=== PATIENT | female | born 1965 | race Caucasian/White ===

== ENCOUNTER 2020-08-22 14:54 | Outpatient (REF) | payer OTHER, SELFPAY ==
[2020-08-22 16:00] LABS: MANUAL DIFF FLAG NO
[2020-08-22 16:12] LABS: Hematocrit 38.2 % (37-47); Hemoglobin 12.7 g/dl (12.0-16.0); Mean Corpuscular Hemoglobin 30.2 pg (27.0-33.0); Mean Corpuscular Volume 90.7 fL (80-98); Red Blood Count 4.21 X10*6/uL (4.20-5.50); White Blood Count 5.9 X10*3/uL (4.8-10.8)
[2020-08-22 16:13] LABS: Basophils Absolute Auto 0.1 X10*3/uL (0.0-0.2); Eosinophils Absolute Auto 0.3 X10*3/uL (0.0-0.4); Eosinophils Percent Auto 4.5 % (0-4); Imm Gran Abs Auto 0.03 X10*3/uL (0.00-0.03); Imm Gran Pct Auto 0.5 % (0.0-0.4); Lymphocytes Percent Auto 34.2 % (20-40); Mean Corpuscular HGB Conc 33.2 g/dl (31.0-35.0); Monocytes Absolute Auto 0.7 X10*3/uL (0.1-1.2); Monocytes Percent Auto 11.4 % (2-11); Neutrophils Absolute Auto 2.9 X10*3/uL (2.0-8.3); Neutrophils Percent Auto 48.4 % (45-73); Platelet Count 333 X10*3/uL (160-400); Red Cell Distribution Width 13.9 % (11.0-16.0)
[2020-08-22 16:16] LABS: Glucose Urine UA NEG (NEG); Leukocyte Esterase Urine NEG (NEG); Nitrite Urine NEG (NEG); Urine Blood 2+ (NEG); Urine Ketones NEG (NEG); Urine Protein NEG (NEG-TRACE)
[2020-08-22 16:20] LABS: Appearance Urine CLEAR; Color Urine YELLOW
[2020-08-22 16:28] LABS: Bacteria Urine TRACE /LPF; Squamous Epithelial Cell Urine 1+ /LPF; WBC Urine 0 /HPF (0-4)
[2020-08-22 16:29] LABS: Renal w Reflex-LAB USE ONLY Order Verified
[2020-08-22 16:34] LABS: Alanine Aminotransferase 24 U/L (0-31); Albumin Level 4.3 g/dL (3.5-5.0); Alkaline Phosphatase 101 U/L (39-117); Anion Gap 13 (12-20); Aspartate Amino Transferase 24 U/L (5-31); Bilirubin Total 0.3 mg/dL (0.0-1.0); Blood Urea Nitrogen 17 mg/dL (9-16); Calcium 10.1 mg/dL (8.4-10.2); Carbon Dioxide 29 mmol/L (22-29); Chloride 104 mmol/L (96-108); Estimated Glomerular Filt Rate > 60; Magnesium 1.6 mg/dL (1.6-2.6); Potassium 4.6 mmol/l (3.3-5.1); Sodium 141 mmol/L (135-145)
[2020-08-22 16:39] LABS: Creatinine Urine 27.22 mg/dL; Protein/Creatinine Ratio, Ur 0.59 (<0.2); Total Protein Urine Random 16 mg/dL (<12)
[2020-08-22 16:44] LABS: Uric Acid 8.8 mg/dL (2.4-5.7)
[2020-08-22 16:45] LABS: Renal w Reflex Lab Use Only Order verified
[2020-08-22 16:50] LABS: Creatinine Urine 27.24 mg/dL; Microalbum/Creatinine Ratio Ur 392.8 ug/mg cr
[2020-08-24 21:07] LABS: Calcium (PTHI) 10.2 mg/dL (8.6-10.4); PTHI 19 pg/mL (14-64)
== END 2020-08-22 14:55 | disposition home or self-care (01) ==
LOC: HO.LAB 14:54
PROVIDERS: PCP Internal Medicine; Visit Provider Internal Medicine Nephrology
DX: R80.8 Other proteinuria (principal); R31.9 Hematuria, unspecified; M31.0 Hypersensitivity angiitis; N06 Isolated proteinuria with specified morphological lesion
CPT/HCPCS: 36415; 80051; 81001; 82040; 82043; 82247; 82310; 82565; 83735; 83970; 84075; 84156; 84450; 84460; 84520; 84550; 85025

== ENCOUNTER 2020-10-02 08:56 | Outpatient (REF) | payer OTHER, SELFPAY ==
[2020-10-02 11:29] LABS: MANUAL DIFF FLAG NO
[2020-10-02 11:41] LABS: Basophils Absolute Auto 0.1 X10*3/uL (0.0-0.2); Basophils Percent Auto 0.8 % (0-2); Eosinophils Absolute Auto 0.4 X10*3/uL (0.0-0.4); Eosinophils Percent Auto 4.4 % (0-4); Hematocrit 40.2 % (37-47); Imm Gran Abs Auto 0.03 X10*3/uL (0.00-0.03); Imm Gran Pct Auto 0.4 % (0.0-0.4); Lymphocytes Absolute Auto 1.7 X10*3/uL (1.2-4.9); Lymphocytes Percent Auto 21.7 % (20-40); Mean Corpuscular HGB Conc 32.3 g/dl (31.0-35.0); Mean Corpuscular Hemoglobin 29.7 pg (27.0-33.0); Mean Corpuscular Volume 91.8 fL (80-98); Mean Platelet Volume 9.9 fL (9.4-12.3); Monocytes Absolute Auto 0.5 X10*3/uL (0.1-1.2); Monocytes Percent Auto 5.9 % (2-11); Neutrophils Absolute Auto 5.3 X10*3/uL (2.0-8.3); Neutrophils Percent Auto 66.8 % (45-73); Platelet Count 372 X10*3/uL (160-400); Red Blood Count 4.38 X10*6/uL (4.20-5.50); Red Cell Distribution Width 13.8 % (11.0-16.0)
[2020-10-02 12:01] LABS: Cholesterol 266 mg/dL; Glucose Urine UA NEG (NEG); HDL Cholesterol 39 mg/dL; Leukocyte Esterase Urine NEG (NEG); Nitrite Urine NEG (NEG); Specific Gravity - Urine 1.025 (1.005-1.025); Triglycerides 472 mg/dL; Urine Blood 2+ (NEG); Urine Ketones NEG (NEG); Urine Protein 1+ MG/DL (NEG-TRACE)
[2020-10-02 12:05] LABS: Alanine Aminotransferase 24 U/L (0-31); Albumin Level 4.5 g/dL (3.5-5.0); Alkaline Phosphatase 106 U/L (39-117); Anion Gap 16 (12-20); Appearance Urine CLEAR; Aspartate Amino Transferase 23 U/L (5-31); Bilirubin Total 0.4 mg/dL (0.0-1.0); Blood Urea Nitrogen 20 mg/dL (9-16); Calcium 9.7 mg/dL (8.4-10.2); Carbon Dioxide 26 mmol/L (22-29); Chloride 101 mmol/L (96-108); Color Urine YELLOW; Estimated Glomerular Filt Rate > 60; Magnesium 1.8 mg/dL (1.6-2.6); Phosphorus 3.3 mg/dL (2.7-4.5); Potassium 4.3 mmol/l (3.3-5.1); Sodium 139 mmol/L (135-145)
[2020-10-02 12:06] LABS: Vitamin D 25-OH Total 32.9 ng/mL (>30)
[2020-10-02 12:11] LABS: Uric Acid 10.7 mg/dL (2.4-5.7)
[2020-10-02 12:13] LABS: Renal w Reflex Lab Use Only Order verified
[2020-10-02 12:21] LABS: Renal w Reflex-LAB USE ONLY Order Verified; Squamous Epithelial Cell Urine 1+ /LPF; WBC Urine 0 /HPF (0-4)
[2020-10-02 12:46] LABS: Creatinine Urine 96.71 mg/dL; Total Protein Urine Random 48 mg/dL (<12)
[2020-10-03 22:13] LABS: Calcium (PTHI) 9.9 mg/dL (8.6-10.4); PTHI 21 pg/mL (14-64)
== END 2020-10-02 08:57 | disposition home or self-care (01) ==
LOC: HO.HMGCLDS 08:56
PROVIDERS: PCP Internal Medicine; Visit Provider Internal Medicine Nephrology
DX: M31.0 Hypersensitivity angiitis (principal); R31.9 Hematuria, unspecified; I12.9 Hypertensive chronic kidney disease with stage 1 through stage 4 chronic kidney disease, or unspecified chronic kidney disease; N18.9 Chronic kidney disease, unspecified; R80.8 Other proteinuria; E21.3 Hyperparathyroidism, unspecified; E55.9 Vitamin D deficiency, unspecified
CPT/HCPCS: 36415; 80051; 80061; 81001; 82040; 82247; 82306; 82310; 82565; 83735; 83970; 84075; 84100; 84156; 84450; 84460; 84520; 84550; 85025

== ENCOUNTER 2020-10-09 07:21 | Outpatient (REF) | payer OTHER, SELFPAY ==
--- NOTE | 2020-10-09 07:24 | MM_ITS ---
EXAMINATION: MM SCREENING DIGITAL BREAST TOMOSYNTHESIS, BILATERAL CLINICAL INFORMATION: Screening. Asymptomatic. The lifetime risk of breast cancer based on the Tyrer-Cuzick Model is 5%. COMPARISON: Mammography: 10/05/2019 TECHNIQUE: Digital breast tomosynthesis is performed in both the craniocaudal and mediolateral oblique views along with computer-aided detection (CAD). Synthesized 2D images are generated from the tomosynthesis. FINDINGS: There are scattered areas of fibroglandular density (ACR BI-RADS breast composition Category b). There are no significant masses, abnormal calcifications, or other abnormalities. Parenchymal pattern is similar to prior study. No significant changes. MM/MM tomosynthesis screening BI IMPRESSION: There are no significant changes from prior study. ASSESSMENT: BI-RADS 1: Negative RECOMMENDATION: Routine annual mammography screening. This patient's information was entered into a reminder system with a target due date for their next mammogram.
== END 2020-10-09 07:22 | disposition home or self-care (01) ==
LOC: HO.MAMMO 07:21
PROVIDERS: PCP Internal Medicine; Visit Provider Internal Medicine
DX: Z12.31 Encounter for screening mammogram for malignant neoplasm of breast (principal)
CPT/HCPCS: 77063; 77067

== ENCOUNTER 2020-10-19 17:17 | Emergency (ER) | payer OTHER, SELFPAY ==
[2020-10-19 17:24] VITALS: BP 163/79; PULSE 70; RESP 17; TEMP 36.2; O2SAT 98; BMI 29.7
--- NOTE | 2020-10-19 17:34 | XR_ITS ---
EXAMINATION: XR FOOT, RIGHT CLINICAL INFORMATION: Erythema around the dorsum of the foot. Swelling. COMPARISON: None TECHNIQUE: 3 views of the right foot. FINDINGS: The bones and soft tissues are normal. No focal bone lesion or bone destruction. No abnormal periosteal reaction. No fracture. Alignment is anatomic. Joint spaces are maintained. No radiopaque foreign body. No air in the soft tissue. There is a plantar calcaneal spur measuring about 5 mm. There is a spur at the posterior calcaneus at the insertion of Achilles tendon XR/XR foot RT min 3V IMPRESSION: No acute abnormality of the foot.
--- NOTE | 2020-10-19 17:48 | ED_ITS ---
HPI - Extremity Problem General Chief complaint: Extremity Injury, Lower Stated complaint: Right foot pain Time Seen by Provider: 10/19/20 17:33 Source: patient Mode of arrival: ambulatory Limitations: no limitations History of Present Illness HPI Narrative: patient presents to the ED for swelling and redness on dorsal aspect of right foot has been occurring for the past 2 days. Patient states dorsal aspect of foot is warm and red. Patient denies any recent trauma, fever, or chills. Patient states this happened once before on the left side last year and was treated with antibiotics. Related Data Home Medications Medication Instructions Recorded Confirmed loratadine 10 mg tablet 10 mg PO DAILY 09/27/20 multivitamin 1 tab PO DAILY 09/27/20 Previous Rx's Medication Instructions Recorded cephalexin 500 mg PO QID #28 cap 10/19/20 doxycycline hyclate 100 mg PO BID 7 Days #14 cap 10/19/20 naproxen 500 mg PO BID PRN #20 tab 10/19/20 Allergies Allergy/AdvReac Type Severity Reaction Status Date / Time codeine [CODEINE] AdvReac Unknown PALPATATION Verified 09/27/20 14:18 S Darvocet A500 Allergy Unknown rash Uncoded 03/29/20 00:00 seafood - food Allergy Unknown rash Uncoded 03/29/20 00:00 SHELLFISH Allergy Unknown unknown Uncoded 09/25/20 11:50 atrovastatin AdvReac rash Uncoded 09/27/20 14:15 Review of Systems Constitutional: Constitutional: Reports as per HPI and Reports no additional constitutional complaints Eyes: Eyes: Reports as per HPI and Reports no additional eye complaints ENT: Reports system reviewed and no additional complaints, except as documented and Reports as per HPI Cardiovascular: Cardiovascular: Reports as per HPI and Reports no additional cardiovascular complaints Respiratory: Respiratory: Reports as per HPI and Reports no additional respiratory complaints Gastrointestinal: Gastrointestinal: Reports as per HPI and Reports no additional gastrointestinal complaints Genitourinary: Genitourinary: Reports no additional female genitourinary complaints and Reports as per HPI Musculoskeletal: Musculoskeletal: Reports no additional musculoskeletal complaints and Reports as per HPI Comments: Right foot Neurologic: Reports system reviewed and no additional complaints, except as documented and Reports as per HPI Psychiatric: Psychiatric: Reports no additional psychiatric complaints and Reports as per HPI [facility] Past Medical History Medical History Mixed dyslipidemia Seasonal allergies Surgical History History of carpal tunnel release of both wrists History of hysterectomy History of tonsillectomy Family History Family History (Updated 09/25/20 @ 12:03 by MARIA A Bauman, [employer]) Father Cancer Mother Stomach cancer Brother Stomach cancer Brother Skin cancer Brother No problems noted. Social History Social History (Updated 09/27/20 @ 14:20 by Hermila Rabago MD) Alcohol intake: never Smoking Status: Light tobacco smoker Tobacco Type: Cigarette Cigarettes Per Day: 5 Advance Directives: No Advance Directives Information Provided: No Physical Exam Vital Signs: Vital Signs: Last Vital Signs Temp 97.1 F 10/19/20 17:24 Pulse 70 10/19/20 17:24 Resp 17 10/19/20 17:24 BP 163/79 H 10/19/20 17:24 Pulse Ox 98 10/19/20 17:24 Body Mass Index 29.7 Const: General: cooperative, healthy appearing, comfortable, no acute distress, well developed, alert and awake Orientation/consciousness: patient oriented x3 HENMT: Head: Yes normal to inspection and Yes No palpable skull fracture present Eyes: General: appearance normal, both eyes and all related structures Neck: Neck: Yes normal visual inspection, Yes full ROM, Yes no lymphadenopathy, Yes no meningeal signs, Yes trachea midline, Yes supple and No tender Chest: Chest palpation & inspection: normal inspection of the chest, normal palpation of entire chest wall and no localized rib tenderness Resp: Effort & Inspection: normal respiratory effort and able to speak in complete sentences Cardio: Jugular venous distension: no JVD Heart sounds: S1 normal heart sound present and S2 normal heart sound present GI: Inspection: Yes normal to inspection and No abdominal wall ecchymosis Palpation (GI): Soft to palpation, not firm, nontender, no guarding and not rigid : General: No CVA tenderness and Yes no CVA tenderness Back/Spine/Pelvis: Back: no CVA tenderness, No CVA tenderness and No back tenderness Skin: Other: right dorsal foot erythema. Neuro: General: patient oriented x3, gait normal, no meningeal signs and CN's II-XI intact bilaterally Cranial nerves: Yes CN's II-XII intact bilaterally Extrem: Other: Right lower extremity: positive for erythema warmth and tenderness on dorsal aspect of foot. Negative for any erythema or swelling of toes . Negative for any ulcers or wound on foot or toes. Negative for any leg swelling, calf pain, or leg redness. Vascular, motor, and neuro exam is intact. Left lower extremity: normal. Motor, neuro, vascular exam intact. Psych: Appearance: grossly normal, well kempt and not disheveled Course Course Course Narrative: History physical exam indicates cellulitis. Will send patient for x-ray to make sure there is no fracture or osteomyelitis. History physical exam does not indicate DVT or gout. Reevaluation(s) Reevaluation #1: X-ray negative for osteomyelitis. patient will be discharged with Keflex and naproxen for pain. Time: 18:24 MDM - Extremity (Nontraumatic) MDM Narrative Medical decision making narrative: cellulitis Discharge Plan Discharge Clinical Impression: Cellulitis of foot Patient Disposition: Home, Self-Care Instructions: Cellulitis (ED) Additional Instructions: return to the ED for worsening swelling of foot, red streaks, increased redness of foot, leg swelling, calf pain, coughing up blood, chest pain, shortness of breath, fever, chills, or any other concerning symptoms. Prescriptions: New cephalexin 500 mg capsule 500 mg PO QID Qty: 28 RF: 0 naproxen 500 mg tablet 500 mg PO BID PRN (Reason: pain) Qty: 20 RF: 0 doxycycline hyclate 100 mg capsule 100 mg PO BID 7 Days Qty: 14 RF: 0 No Action loratadine 10 mg tablet 10 mg PO DAILY RF: 0 multivitamin Tablet 1 tab PO DAILY RF: 0 Referrals: Hermila Rabago MD [Primary Care Provider] - 2 days ( Left foot cellulitis) Stand Alone Forms: Work/School Release Print Language: Nepali
[2020-10-19] MEDS: Ibuprofen 800 MG TABLET PO (18:55)
[2020-10-19 19:25] VITALS: BP 167/60; PULSE 88; RESP 16; TEMP 36.7; O2SAT 98
== END 2020-10-19 19:27 | disposition home or self-care (01) ==
PROVIDERS: Emergency Provider Internal Medicine; PCP Internal Medicine
DX: L03.115 Cellulitis of right lower limb (principal); M79.671 Pain in right foot; F17.210 Nicotine dependence, cigarettes, uncomplicated
CPT/HCPCS: 73630; 99282; 99283; 99284